=== PATIENT | female | born 1950 | race Caucasian/White ===

== ENCOUNTER 2017-02-02 21:45 | Emergency (ER) | payer OTHER ==
[2017-02-02 22:08] VITALS: BP 151/76; PULSE 86; TEMP 98.8; BMI 35.3
--- NOTE | 2017-02-02 22:25 | PDOC ---
History of Present Illness - General Chief Complaint: Injury Stated Complaint: FALL/INJURY Time Seen by Provider: 02/02/17 22:13 History Source: Patient Exam Limitations: No Limitations - History of Present Illness Initial Comments: 02/02/17 22:23 66-year-old female presents the emergency room for evaluation of left wrist pain. Patient states was walking in a building when she had tripped on the steps causing her to land on her wrist. Patient denies recent injury to affected area states is able to move her but with discomfort. Patient currently on no anticoagulation therapy. Occurred: reports: just prior to arrival Severity: reports: mild Pain Location: reports: upper extremity Method of Injury: Yes: fall Loss of Consciousness: no loss of consciousness Associated Symptoms (Fall): denies symptoms Past History - Travel Traveled outside of the country in the last 30 days: No - Past Medical History Allergies/Adverse Reactions: Allergies Allergy/AdvReac Type Severity Reaction Status Date / Time Penicillins Allergy Verified 02/02/17 22:05 Home Medications: Ambulatory Orders Meclizine HCl 25 mg PO BID #6 tablet 11/02/15 Diabetes: No (had episode of hypoglycemia) Hypercholesterolemia: Yes (was on liptior and zocor but made her nauseous) - Suicide/Smoking/Psychosocial Hx Smoking History: Never smoked Have you smoked in the past 12 months: No Number of Cigarettes Smoked Daily: 0 Hx Alcohol Use: No Drug/Substance Use Hx: No Substance Use Type: None Hx Substance Use Treatment: No Patient Lives Alone: No Review of Systems - Review of Systems Able to Perform ROS?: Yes Constitutional: No: Symptoms Reported Cardiac (ROS): No: Lightheadedness Musculoskeletal: Yes: Joint Pain Integumentary: No: Symptoms Reported Hematologic/Lymphatic: No: Symptoms Reported *Physical Exam - Vital Signs Last Vital Signs Temp Pulse Resp BP Pulse Ox 98.8 F 86 20 151/76 98 02/02/17 22:05 02/02/17 22:05 02/02/17 22:05 02/02/17 22:05 02/02/17 22:05 - Physical Exam General Appearance: Yes: Nourished, Appropriately Dressed. No: Apparent Distress Neck: positive: Supple. negative: Tender, Decreased range of motion Respiratory/Chest: positive: Lungs Clear, Normal Breath Sounds. negative: Respiratory Distress Cardiovascular: positive: Regular Rhythm, Regular Rate Extremity: positive: Normal Capillary Refill, Normal Inspection, Normal Range of Motion, Tender (medial aspect of left wrist) Integumentary: positive: Normal Color, Warm, Moist Neurologic: positive: Motor Strength 5/5 (left hand grasp) ED Treatment Course - RADIOLOGY Radiology Studies Ordered: Category Date Time Status WRIST-LEFT [RAD] Stat Radiology 02/02/17 22:15 Ordered Medical Decision Making - Medical Decision Making 02/02/17 22:25 Patient status post mechanical fall landing on her left wrist. Patient states landed on her left wrist. Patient exam had tenderness over the snuffbox concerning for fracture. Patient left wrist x-ray. 02/02/17 22:26 Wrist x-ray negative for fracture. Patient recommended to apply ice, elevate take NSAIDs such as Motrin for discomfort, and rest for the next 2 days. *DC/Admit/Observation/Transfer Diagnosis at time of Disposition: Left wrist sprain Qualifiers: Encounter type: initial encounter Qualified Code(s): S63.502A - Unspecified sprain of left wrist, initial encounter - Discharge Dispostion Disposition: HOME Condition at time of disposition: Good - Referrals Referrals: González Hirsch [Primary Care Provider] - - Patient Instructions Printed Discharge Instructions: DI for Wrist Sprain Additional Instructions: Rest your hand and elevate when you can. Also apply ice as much as you can tolerate for the next 2-3 days. You may take Motrin 400-600 mg every 6-8 hours for discomfort and inflammation. - Post Discharge Activity
[2017-02-02] MEDS ORDERED: IBUPROFEN 600 MG TABLET (FP) PO ONE ×2 (22:27→22:31)
== END 2017-02-02 22:37 | disposition home or self-care (01) ==
LOC: JERFT 21:45
DX: S63.502A Unspecified sprain of left wrist, initial encounter (principal); W10.8XXA Fall (on) (from) other stairs and steps, initial encounter; Y93.01 Activity, walking, marching and hiking; Y92.038 Other place in apartment as the place of occurrence of the external cause; E78.00 Pure hypercholesterolemia, unspecified
CPT/HCPCS: 73110-TC-LT; 99281-25

== ENCOUNTER 2021-07-31 12:03 | Emergency (ER) | payer OTHER ==
[2021-07-31 12:19] VITALS: BP 135/80; PULSE 70; TEMP 98.6; BMI 33.6
== END 2021-07-31 15:46 | disposition home or self-care (01) ==
LOC: JERFT 12:03 → JER 12:03 → JERFT 15:46
DX: M65.331 Trigger finger, right middle finger (principal)
CPT/HCPCS: 73140-TC-RT-FY; 99283-25